=== PATIENT | female | born 1975 | race Hispanic/Latino ===

== ENCOUNTER → 2024-06-27 | Day surgery (SDC) | payer BC ==
[~2024-06-27] MED LIST: METFORMIN HCL500 MG PO
[2024-06-27] MEDS: LACTATED RINGER'S 1,000 ML ONE (09:24)
[2024-06-27] MEDS: INSULIN REGULAR, HUMAN 100 UNIT/1 ML ONE (09:26)
[2024-06-27] MEDS: DEXTROSE 50% SYRINGE 50 ML IV ONE (10:25)
[2024-06-27 13:10] VITALS: BP 111/66; PULSE 94; RESP 18; TEMP 97.4; O2SAT 99
[2024-06-27 13:33] LABS: WBC,FECAL (FECAL LACTOFERRIN) POSITIVE (NEGATIVE)
== END | disposition home or self-care (01) ==
LOC: OR 10:30
PROVIDERS: ATTEND Internal Medicine Gastroenterology
DX: Z12.11 Encounter for screening for malignant neoplasm of colon (principal); K52.9 Noninfective gastroenteritis and colitis, unspecified; K62.89 Other specified diseases of anus and rectum; K21.9 Gastro-esophageal reflux disease without esophagitis; I10 Essential (primary) hypertension; E11.9 Type 2 diabetes mellitus without complications; K80.20 Calculus of gallbladder without cholecystitis without obstruction; E66.9 Obesity, unspecified; F41.9 Anxiety disorder, unspecified; Z01.810 Encounter for preprocedural cardiovascular examination; Z79.84 Long term (current) use of oral hypoglycemic drugs; Z68.32 Body mass index [BMI] 32.0-32.9, adult
CPT/HCPCS: 36415; 45380; 82948; 83630; 83993; 87045; 87177; 87324; 87328; 87449; 93005; J1817; J7121; J7799

== ENCOUNTER → 2024-07-28 | Outpatient (REF) | payer OTHER | LOC: DX 08:21 | PROVIDERS: ATTEND Nurse Practitioner | DX: K52.9 Noninfective gastroenteritis and colitis, unspecified (principal); K50.919 Crohn's disease, unspecified, with unspecified complications | CPT/HCPCS: 74250 ==